=== PATIENT | female | born 2000 | race Asian ===

== ENCOUNTER 2025-01-01 12:56 | Emergency (ER) | payer OTHER, SELFPAY ==
[2025-01-01 12:57] VITALS: BMI 21.0
[2025-01-01 13:00] VITALS: BP 126/95; PULSE 131; RESP 18; TEMP 36.2; O2SAT 98; BMI 21.0
[2025-01-01] MEDS: Tetracaine 0.5% Ophthalmic Bottle 1 DRP OPHTHALMIC (14:09)
--- NOTE | 2025-01-01 14:18 | EDS_ITS ---
HPI History of Present Illness Chief Complaint: Neuro S/Sx Narrative Narrative: Chief complaint and HPI: Right facial weakness. Patient states approximately 2 weeks ago she developed a migraine. She states that is not abnormal for her as she has a history of migraines. Headache improved with OTC medications. Patient states on Tuesday she noticed some right-sided tongue numbness and states on Tuesday she noticed that the right side of her face felt weak. Today she noticed that her right eyelid felt weak and shaky. States her numbness in her tongue has resolved. Noticed that her eye was a little red. Denies eye pain or pruritus. She denies any fever, chills, headache, neurological deficits, current numbness/tingling, neck pain, tinnitus or hearing changes, vision changes, eye pain, ear pain, URI symptoms, chest pain, shortness of breath, nausea, vomiting. She denies any sores or blisters. Review of systems: See HPI Medications: As listed on the chart Allergies: As listed on the chart PFSH: Per chart Vital signs: As listed on the chart. Reviewed. Physical exam: Gen: A&O x3, NAD Head: Normocephalic, atraumatic, right eyebrow is lower compared to the left Eye: No periorbital swelling or ecchymosis, right eyelid weaker than left when shut, no proptosis, no pain with extra ocular movements, EOMI intact, no lacerations, mild sclera injection of the lateral aspect of the right eye, no foreign body, no teardrop pupil, no enophthalmos. A fluorescein dye was instilled and under UV light no uptake was identified, no dendritic lesions, negative Seidels sign. Visual Acuity 20/20 ENT: Right-sided facial mild paralysis/weakness compared to the left, TMs clear BL without vesicles, nose without lesions, no signs of Cary Orozco syndrome, moist mucous membranes, posterior oropharynx unremarkable, uvula midline, tonsils not enlarged, no lesions in the mouth Neck: Trachea midline, No JVD, Full ROM, No meningismus CV: RRR, no murmurs Resp: Lungs CTA BL, no w/r/c GI: Abd soft, non-distended, non-tender, no r/r/g Musc: Full ROM, no deformity, strength was 5 out of 5 in all extremities Skin: Warm, dry, no rash Neuro: Alert, oriented, grossly intact, sensation intact Psych: Cooperative, appropriate mood and affect PFSH PFSH Medical History no medical history Home Medications ?Medication ?Instructions ?Recorded ?Last Taken ?Type prednisone 20 mg tablet 60 mg (3 x 20 mg) PO DAILY 7 days 01/01/25 Unknown Rx #15 TABLETS valacyclovir 1 gram tablet 1,000 mg PO Q8H 7 days #21 tabs 01/01/25 Unknown Rx Allergy/AdvReac Type Severity Reaction Status Date / Time No Known Allergies Allergy Verified 01/01/25 13:00 Family History no significant family his Surgical History no surgical history Social History Smoking Status: Never smoker EXAM Physical Exam Const Vital Signs: 01/01/25 13:00 Temperature 97.2 F L Temperature Source Temporal Pulse Rate 131 H Respiratory Rate 18 Blood Pressure 126/95 H Blood Pressure Mean 105 Pulse Ox 98 Oxygen Delivery Method Room Air MDM MDM MDM Narrative Medical decision making narrative: 24-year-old female presents for evaluation of right facial weakness. Onset of symptoms mostly started Tuesday. See physical exam findings. 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 She has no vesicles or lesions on the face or the ear/eye. No signs of Cary Orozco syndrome. She denies any fever, chills, headache, neurological deficits, current numbness/tingling, neck pain, tinnitus or hearing changes, vision changes, eye pain, ear pain, URI symptoms, chest pain, shortness of breath, nausea, vomiting. On presentation, patient was originally tachycardic however heart rate was rechecked and normal. Patient states is not abnormal for her to have a high heart rate and she is a little anxious. Patient will be started on prednisone x 1 week along with valacyclovir. She was told that she needs to follow-up with ophthalmology. She was educated that she needs to tape her eyelid shut at night. She needs to use [id number] teardrops as needed for dry eye. Follow-up with primary care physician. Return precautions were explained such as vision changes, hearing changes, lesions on the face, eye pain, ear pain. She confirmed understanding of the plan. Patient stable to discharge home. Impression: 1. Strickland's palsy Discharge Plan Triage Chief Complaint: Neuro S/Sx ED Provider: Anil Waterman Dx/Rx/DC Orders Prescriptions: New prednisone 20 mg tablet 60 mg PO DAILY 7 Days Qty: 15 0RF valacyclovir 1 gram tablet 1,000 mg PO Q8H 7 Days Qty: 21 0RF Primary Care Provider: Care Physician,No Primary Referrals: Care Physician,No Primary [Primary Care Provider] - Print Language: Lithuanian
[2025-01-01 14:29] VITALS: BP 122/70; PULSE 131; RESP 18; TEMP 36.2; O2SAT 98
== END 2025-01-01 14:31 | disposition home or self-care (01) ==
PROVIDERS: Emergency Provider Surgery; Visit Provider Surgery
DX: G51.0 Bell's palsy (principal)
CPT/HCPCS: 99283; A4216